=== PATIENT | male | born 1970 | race Caucasian/White ===

== ENCOUNTER 2019-06-19 13:58 | Emergency (ER) | payer BC, OTHER ==
[2019-06-19 14:02] VITALS: BP 155/94; PULSE 97; TEMP 99; BMI 29.5
--- NOTE | 2019-06-19 14:14 | PDOC ---
Attending Attestation - Resident Resident Name: RomyLissetteDhirajYovannytono - ED Attending Attestation I have performed the following: I have examined & evaluated the patient, The case was reviewed & discussed with the resident, I agree w/resident's findings & plan, Exceptions are as noted - HPI HPI: 06/19/19 14:38 49y M presenting with R ankle pain. Patient was stepping off a curb and stepped onto a bottle, inverting his right ankle. Patient states there was a bit sore yesterday but he was able to walk around. The pain became more severe this morning and will come out of bed, States that the pain is significantly worse especially with weightbearing he also noticed some increased swelling overnight. Patient denies any numbness, tingling, no other pains or injuries Including any back pain, hip pain, knee pain, foot pain. The patient localizes to the pain being worse on the lateral aspect of the ankle and is nonradiating. ROS: Constitutional - no reported Fever, Chills, Musculskelatal - +R ankle pain no reported back pain, joint swelling skin - no reported bruising, erythema, rash neurological: no reported numbness, focal weakness, tingling, hematologic: no reported easy bruising, easy bleeding Physical Exam: GENERAL: The patient is awake, alert, and fully oriented, Nontoxic - in no acute distress. EXTREMITIES: Normal range of motion, no edema. Mild tenderness to palpation and edema noted on the lateral malleolus. No focal bony tenderness on the medial mall, navicular or anywhere else on the foot. NEUROLOGICAL: No facial assymetry, Normal speech, PSYCH: Normal mood, normal affect. SKIN: Warm, Dry, normal turgor, Suspect Ankle strain Will obtain x-ray to rule out fracture, Tylenol for pain
--- NOTE | 2019-06-19 14:22 | PDOC ---
History of Present Illness - General Chief Complaint: Injury Stated Complaint: RIGHT ANKLE INJURY Time Seen by Provider: 06/19/19 14:02 - History of Present Illness Initial Comments: 06/19/19 14:27 49y/o M no significant medical hx presenting today with right ankle pain and swelling s/p rolling his ankle yesterday. He was stepping of from the curb, when he stepped on a bottle and rolled his ankle. He did not fall. He was able to experience relief yesterday with ice and ibuprofen. He was awakened with pain this morning at around 3 a.m. He took ibuprofen this morning with no relief. He rates his pain as 7/10 non-radiating pain in his foot. He denies any fevers, chills, cuts, abrasions, inability to bear weight, numbness, tingling, paresthesias to the affected area. Past History - Past Medical History Allergies/Adverse Reactions: Allergies Allergy/AdvReac Type Severity Reaction Status Date / Time Penicillins Allergy Verified 06/19/19 13:59 Home Medications: Ambulatory Orders NK [No Known Home Medication] 06/19/19 COPD: No Other medical history: pt denies - Psycho Social/Smoking Cessation Hx Smoking History: Never smoked Have you smoked in the past 12 months: No Information on smoking cessation initiated: No Hx Alcohol Use: (occasional) Review of Systems - Review of Systems Constitutional: No: Chills, Fever HEENTM: No: Eye Pain, Blurred Vision Respiratory: Yes: Orthopnea. No: Cough, Shortness of Breath Cardiac (ROS): No: Chest Pain, Lightheadedness ABD/GI: No: Nausea, Vomiting : No: Burning, Dysuria Musculoskeletal: Yes: Joint Swelling, Muscle Pain. No: Back Pain Integumentary: Yes: Erythema. No: Pallor Neurological: No: Headache, Numbness Psychiatric: No: Anxiety, Depression Hematologic/Lymphatic: No: Easy Bleeding, Easy Bruising *Physical Exam - Vital Signs Last Vital Signs Temp Pulse Resp BP Pulse Ox 99 F 97 H 18 155/94 97 06/19/19 13:58 06/19/19 13:58 06/19/19 13:58 06/19/19 13:58 06/19/19 13:58 - Physical Exam Comments: 06/19/19 14:25 PE: GENERAL: Awake, alert, and fully oriented, in no acute distress HEAD: No signs of trauma, normocephalic, atraumatic EYES: PERRLA, EOMI, sclera anicteric, conjunctiva clear ENT: Auricles normal inspection, hearing grossly normal, nares patent, oropharynx clear without exudates. Moist mucosa NECK: Normal ROM, supple, no lymphadenopathy, JVD, or masses LUNGS: No distress, speaks full sentences, clear to auscultation bilaterally HEART: Regular rate and rhythm, normal S1 and S2, no murmurs, rubs or gallops, peripheral pulses normal and equal bilaterally. ABDOMEN: Soft, nontender, normoactive bowel sounds. No guarding, no rebound. No masses EXTREMITIES : Area over lateral right malleolus swollen and erythematous. tenderness over right lateal malleolus and below left lateral malleolus. bony tenderness over plantar surface of 5th metatarsal. 2+ pedal pulses bilaterally. sensation intact. patient able to bear weight. NEUROLOGICAL: Cranial nerves II through XII grossly intact. Normal speech, normal gait, no focal sensorimotor deficits SKIN: Warm, Dry, normal turgor, no rashes or lesions noted Medical Decision Making - Medical Decision Making 06/19/19 14:32 49y/o M no significant medical hx presenting today with right ankle pain and swelling s/p rolling his ankle yesterday Per [place] ankle rules ankle x-ray recommended 06/19/19 16:35 X-ray: no acute fracture. Discharge - Discharge Information Problems reviewed: Yes Clinical Impression/Diagnosis: Right ankle pain Qualifiers: Chronicity: acute Qualified Code(s): M25.571 - Pain in right ankle and joints of right foot Condition: Stable Disposition: HOME - Admission No - Follow up/Referral Referrals: Karol Hopper MD [Primary Care Provider] - - Patient Discharge Instructions Patient Printed Discharge Instructions: DI for Ankle Pain Additional Instructions: You were seen in the ER for right ankle pain YOu do not have any fractures Rest, Ice, compress (wrapping leg , or keeping in cast) an elevate affected ankle. Use motrin as directed on label for pain . RETURN TO THE ER - if you develop fevers or chills - swelling and redness in your ankle does not improve or begins to spread around the foot and feel warm -Pain worsens even after few days of pain medications and rest. - Post Discharge Activity Work/Back to School Note: Back to Work
[2019-06-19] MEDS ORDERED: ACETAMINOPHEN 500 MG TABLET (FP) PO ONE (14:24)
[2019-06-19] MEDS ORDERED: ACETAMINOPHEN 325 MG TABLET (FP) ONE (14:37)
== END 2019-06-19 16:51 | disposition home or self-care (01) ==
LOC: FER 13:58
DX: M25.571 Pain in right ankle and joints of right foot (principal); Z88.0 Allergy status to penicillin; X58.XXXA Exposure to other specified factors, initial encounter; Y93.89 Activity, other specified; Y92.89 Other specified places as the place of occurrence of the external cause
CPT/HCPCS: 73610-TC-RT-FY; 73630-TC-RT-FY; 99282-25

== ENCOUNTER 2020-08-11 07:39 | Emergency (ER) | payer BC, OTHER ==
[2020-08-11 07:49] VITALS: BP 149/101; PULSE 88; TEMP 99.3; BMI 29.5
== END 2020-08-11 09:42 | disposition home or self-care (01) ==
LOC: FER 07:39
DX: S99.911A Unspecified injury of right ankle, initial encounter (principal); W01.0XXA Fall on same level from slipping, tripping and stumbling without subsequent striking against object, initial encounter
CPT/HCPCS: 73610-TC-RT-FY; 73630-TC-RT-FY; 99283-25

== ENCOUNTER 2021-08-24 09:09 | Emergency (ER) | payer BC, OTHER ==
[2021-08-24 09:20] VITALS: BP 166/96; PULSE 71; TEMP 98.3; BMI 29.7
[2021-08-24] MEDS ORDERED: DOXYCYCLINE HYCLATE 100 MG CAPSULE PO ONE (09:38)
[2021-08-24] MEDS ORDERED: INDOMETHACIN 50 MG CAPSULE PO ONE (09:40)
[2021-08-24] MEDS ORDERED: COLCHICINE 0.6 MG TAB PO ONE (09:40)
[2021-08-24] MEDS ORDERED: predniSONE 20 MG TABLET (UD) PO ONE (09:41)
[2021-08-24] MEDS ORDERED: DOXYCYCLINE HYCLATE 100 MG TABLET PO ONE (09:46)
[2021-08-24] MEDS ORDERED: predniSONE 20 MG TABLET (UD) ONE (09:46)
[2021-08-24] MEDS ORDERED: INDOMETHACIN 25 MG CAPSULE ONE (09:47)
== END 2021-08-24 10:35 | disposition home or self-care (01) ==
LOC: FER 09:09
DX: M10.9 Gout, unspecified (principal)
CPT/HCPCS: 99283-25

== ENCOUNTER 2023-02-09 08:28 | Emergency (ER) | payer OTHER, BC ==
[2023-02-09 08:36] VITALS: RESP 18; TEMP 98.2; BMI 29.5
[2023-02-09] MEDS ORDERED: IBUPROFEN 600 MG TABLET (FP) PO ONE ×2 (08:59→09:07)
[2023-02-09 09:54] VITALS: BP 166/104; PULSE 66
== END 2023-02-09 09:58 | disposition home or self-care (01) ==
LOC: FER 08:28
DX: S80.02XA Contusion of left knee, initial encounter (principal); M25.562 Pain in left knee; W22.8XXA Striking against or struck by other objects, initial encounter
CPT/HCPCS: 73562-TC-LT-FY; 99283-25